=== PATIENT | female | born 1970 | race Caucasian/White ===

== ENCOUNTER 2017-11-15 11:03 | Emergency (ER) | payer SELFPAY ==
[~2017-11-15] VITALS: Ht 160 cm; Wt 69.4 kg
[2017-11-15 11:08] VITALS: Ht 160 cm; Wt 69.4 kg
[2017-11-15 12:27] VITALS: BP 121/86
== END 2017-11-15 12:50 | disposition home or self-care (01) ==
LOC: ED 11:03
DX: S80.862A Insect bite (nonvenomous), left lower leg, initial encounter (principal); S70.362A Insect bite (nonvenomous), left thigh, initial encounter; Z98.51 Tubal ligation status; Z90.49 Acquired absence of other specified parts of digestive tract; Z88.1 Allergy status to other antibiotic agents; W57.XXXA Bitten or stung by nonvenomous insect and other nonvenomous arthropods, initial encounter; Y93.89 Activity, other specified; Y92.89 Other specified places as the place of occurrence of the external cause; Y99.8 Other external cause status

== ENCOUNTER 2017-12-27 00:06 | Emergency (ER) | payer SELFPAY ==
[~2017-12-27] VITALS: Ht 160 cm; Wt 70.3 kg
[2017-12-27 01:02] VITALS: BP 148/98
== END 2017-12-27 01:02 | disposition home or self-care (01) ==
LOC: ED 00:06
DX: T78.49XA Other allergy, initial encounter (principal); L50.0 Allergic urticaria; Z90.49 Acquired absence of other specified parts of digestive tract; Z98.51 Tubal ligation status; Z88.1 Allergy status to other antibiotic agents; X58.XXXA Exposure to other specified factors, initial encounter
CPT/HCPCS: J7512

== ENCOUNTER 2018-11-04 12:01 | Emergency (ER) | payer OTHER ==
[~2018-11-04] VITALS: Ht 157.5 cm; Wt 66.7 kg
[2018-11-04 12:09] VITALS: Ht 157.5 cm; Wt 66.7 kg
[2018-11-04 13:01] VITALS: BP 137/77
== END 2018-11-04 13:01 | disposition home or self-care (01) ==
LOC: ED 12:01
DX: S70.361A Insect bite (nonvenomous), right thigh, initial encounter (principal); S20.361A Insect bite (nonvenomous) of right front wall of thorax, initial encounter; Z88.1 Allergy status to other antibiotic agents; Z90.49 Acquired absence of other specified parts of digestive tract; Z98.51 Tubal ligation status; W57.XXXA Bitten or stung by nonvenomous insect and other nonvenomous arthropods, initial encounter; Y93.89 Activity, other specified; Y92.89 Other specified places as the place of occurrence of the external cause; Y99.8 Other external cause status
CPT/HCPCS: J7512

== ENCOUNTER 2018-11-05 20:45 | Emergency (ER) | payer OTHER ==
[~2018-11-05] VITALS: Ht 157.5 cm; Wt 66.7 kg
[2018-11-05 21:26] LABS: BASOPHIL % 0.3 % (0-2); PLATELET COUNT 247 x10^3mcL (130-400)
[2018-11-05 21:27] LABS: RED CELL DISTRIBUTION WIDTH 14.8 % (11.5-14.5)
[2018-11-05 23:11] VITALS: BP 132/72
== END 2018-11-05 23:08 | disposition home or self-care (01) ==
LOC: ED 20:45
PROVIDERS: Emergency Medicine
DX: T78.3XXA Angioneurotic edema, initial encounter (principal); T37.0X5A Adverse effect of sulfonamides, initial encounter; Z88.1 Allergy status to other antibiotic agents; Z98.890 Other specified postprocedural states; Z90.49 Acquired absence of other specified parts of digestive tract; Z98.51 Tubal ligation status; Y92.89 Other specified places as the place of occurrence of the external cause
CPT/HCPCS: J1200; J2930